=== PATIENT | male | born 1960 | race African-American/Black ===

== ENCOUNTER 2018-01-06 12:59 | Inpatient (IN) | payer OTHER ==
[~2018-01-06] VITALS: Ht 170.2 cm; Wt 102.0 kg
[2018-01-21] VITALS (11 sets, daily range): BP systolic 93–150; BP diastolic 52–87; PULSE 80–106; TEMP 98–98.6
[2018-01-21] MEDS ORDERED: MICARDIS80 MG PO (05:53)
[2018-01-21] MEDS ORDERED: ZYLOPRIM 300MG300 MG PO (05:54)
[2018-01-21] MEDS ORDERED: NORVASC 5MG5 MG/TAB PO (05:54)
[2018-01-21] MEDS ORDERED: JANUVIA 100MG100 MG PO (05:55)
[2018-01-21] MEDS ORDERED: PRAVACHOL80 MG PO (05:55)
[2018-01-21] MEDS ORDERED: GLUCOTROL10 MG PO (05:55)
[2018-01-21] MEDS ORDERED: VITAMIN C500 MG PO (05:56)
[2018-01-21] MEDS ORDERED: AMBIEN 10MG10 MG PO (05:56)
[2018-01-21 13:30] LABS: BASO % 0.2 % (0.0-2.0); EOS % 0.1 % (0-4.0); GRAN # 10.2 (1.4-6.5); GRAN % 88.8 % (42.2-75.2); LYMPH # 0.8 (1.2-3.4); LYMPH % 6.9 % (20.0-51.0); MEAN CELL VOLUME 84 fl (80.0-100.0); MEAN CORPUSCULAR HGB CONC 36 g/dl (33.0-37.0); MEAN PLATELET VOLUME 9.1 fl (7.4-10.4); MONO # 0.4 (0.1-0.6); MONO % 3.5 % (1.7-9.3); PLATELET COUNT 214 K/mm3 (130-400); RED BLOOD COUNT 3.93 M/mm3 (4.20-5.60); REDCELL DISTRIBUTION WIDTH-CV 13.2 % (11.5-14.5)
[2018-01-21 13:39] LABS: HEMATOCRIT 32.8 % (42.0-52.0); HEMOGLOBIN 11.7 g/dl (13.5-18.0); MEAN CORPUSCULAR HEMOGLOBIN 30 pg (27.0-31.0)
[2018-01-21 14:13] LABS: CALCIUM 8.4 mg/dL (8.4-10.2); CREATININE, serum 1.68 mg/dL (0.66-1.25)
[2018-01-21 14:15] LABS: POTASSIUM 5.1 mmol/L (3.4-5.0)
[2018-01-22 02:50] VITALS: BP 127/70; PULSE 111; TEMP 98.6
[2018-01-22 06:11] VITALS: BP 109/64; PULSE 107; TEMP 98.4
[2018-01-22 06:37] LABS: BASO % 0.2 % (0.0-2.0); GRAN % 85.6 % (42.2-75.2); LYMPH # 0.7 (1.2-3.4); LYMPH % 6.1 % (20.0-51.0); MEAN CELL VOLUME 83 fl (80.0-100.0); MEAN CORPUSCULAR HGB CONC 35 g/dl (33.0-37.0); MEAN PLATELET VOLUME 9.2 fl (7.4-10.4); MONO # 0.9 (0.1-0.6); MONO % 7.7 % (1.7-9.3); PLATELET COUNT 178 K/mm3 (130-400); RED BLOOD COUNT 3.54 M/mm3 (4.20-5.60); REDCELL DISTRIBUTION WIDTH-CV 13.5 % (11.5-14.5)
[2018-01-22 06:55] LABS: HEMATOCRIT 29.5 % (42.0-52.0); HEMOGLOBIN 10.3 g/dl (13.5-18.0); MEAN CORPUSCULAR HEMOGLOBIN 29 pg (27.0-31.0)
[2018-01-22 06:59] LABS: CALCIUM 8.1 mg/dL (8.4-10.2); CREATININE, serum 2.34 mg/dL (0.66-1.25); POTASSIUM 5.1 mmol/L (3.4-5.0)
[2018-01-22 09:38] VITALS: BP 120/71; PULSE 104; TEMP 98.1
[2018-01-22 13:05] VITALS: BP 109/68; PULSE 93; TEMP 98.9
[2018-01-22 17:24] VITALS: BP 130/73; PULSE 94; TEMP 98.8
[2018-01-22 22:30] VITALS: BP 151/89; PULSE 102; TEMP 97.2
[2018-01-23 00:14] VITALS: BP 153/85; PULSE 102; TEMP 97.4
[2018-01-23 05:00] VITALS: BP 137/80; PULSE 105; TEMP 98.3
[2018-01-23 06:55] LABS: CREATININE, serum 2.32 mg/dL (0.66-1.25); POTASSIUM 4.4 mmol/L (3.4-5.0)
[2018-01-23 07:01] LABS: BASO % 0.1 % (0.0-2.0); GRAN # 11.5 (1.4-6.5); GRAN % 85.4 % (42.2-75.2); HEMATOCRIT 32.6 % (42.0-52.0); HEMOGLOBIN 11.6 g/dl (13.5-18.0); LYMPH # 0.9 (1.2-3.4); LYMPH % 6.3 % (20.0-51.0); MEAN CELL VOLUME 83 fl (80.0-100.0); MEAN CORPUSCULAR HEMOGLOBIN 29 pg (27.0-31.0); MEAN CORPUSCULAR HGB CONC 36 g/dl (33.0-37.0); MEAN PLATELET VOLUME 9.8 fl (7.4-10.4); MONO % 7.5 % (1.7-9.3); PLATELET COUNT 162 K/mm3 (130-400); RED BLOOD COUNT 3.95 M/mm3 (4.20-5.60); REDCELL DISTRIBUTION WIDTH-CV 13.8 % (11.5-14.5)
[2018-01-23 09:18] VITALS: BP 126/83; PULSE 110; TEMP 98.8
[2018-01-23 12:33] VITALS: BP 145/84; PULSE 106; TEMP 98.7
[2018-01-23 18:00] VITALS: BP 156/88; PULSE 104; TEMP 98.4
[2018-01-23 21:25] VITALS: BP 164/84; PULSE 101; TEMP 99.4
[2018-01-24 04:14] VITALS: BP 179/96; PULSE 112; TEMP 98.3
[2018-01-24 06:18] VITALS: BP 166/92
[2018-01-24 07:10] LABS: BASO % 0.1 % (0.0-2.0); EOS # 0.1 (0.0-0.7); EOS % 0.6 % (0-4.0); GRAN # 8.9 (1.4-6.5); GRAN % 80.5 % (42.2-75.2); LYMPH # 1.1 (1.2-3.4); LYMPH % 9.9 % (20.0-51.0); MEAN CELL VOLUME 83 fl (80.0-100.0); MEAN CORPUSCULAR HGB CONC 35 g/dl (33.0-37.0); MEAN PLATELET VOLUME 10.1 fl (7.4-10.4); MONO # 0.9 (0.1-0.6); MONO % 8.4 % (1.7-9.3); PLATELET COUNT 149 K/mm3 (130-400); REDCELL DISTRIBUTION WIDTH-CV 13.4 % (11.5-14.5)
[2018-01-24 07:15] LABS: HEMATOCRIT 28.3 % (42.0-52.0); HEMOGLOBIN 9.9 g/dl (13.5-18.0); MEAN CORPUSCULAR HEMOGLOBIN 29 pg (27.0-31.0)
[2018-01-24 07:29] LABS: CALCIUM 8.6 mg/dL (8.4-10.2); CREATININE, serum 2.08 mg/dL (0.66-1.25)
[2018-01-24 10:13] VITALS: BP 146/85; PULSE 96; TEMP 97.9
[2018-01-24 12:58] VITALS: BP 157/87; PULSE 99; TEMP 100.4
[2018-01-24 18:08] VITALS: BP 140/83; PULSE 94; TEMP 99.4
[2018-01-24 22:00] VITALS: BP 138/83; PULSE 92; TEMP 99.1
[2018-01-25 02:00] VITALS: BP 155/89; PULSE 96; TEMP 98.3
[2018-01-25 06:53] VITALS: BP 150/88; PULSE 97; TEMP 98.9
[2018-01-25 07:21] LABS: BASO % 0.1 % (0.0-2.0); EOS # 0.2 (0.0-0.7); GRAN # 7.9 (1.4-6.5); LYMPH # 1.2 (1.2-3.4); LYMPH % 11.5 % (20.0-51.0); MEAN CELL VOLUME 82 fl (80.0-100.0); MEAN CORPUSCULAR HGB CONC 36 g/dl (33.0-37.0); MEAN PLATELET VOLUME 9.8 fl (7.4-10.4); MONO # 0.9 (0.1-0.6); MONO % 8.8 % (1.7-9.3); PLATELET COUNT 193 K/mm3 (130-400); RED BLOOD COUNT 3.58 M/mm3 (4.20-5.60); REDCELL DISTRIBUTION WIDTH-CV 13.6 % (11.5-14.5)
[2018-01-25 07:29] LABS: HEMATOCRIT 29.3 % (42.0-52.0); HEMOGLOBIN 10.5 g/dl (13.5-18.0); MEAN CORPUSCULAR HEMOGLOBIN 29 pg (27.0-31.0)
[2018-01-25 07:31] LABS: CALCIUM 8.8 mg/dL (8.4-10.2); CREATININE, serum 1.93 mg/dL (0.66-1.25); POTASSIUM 4.1 mmol/L (3.4-5.0)
[2018-01-25 11:09] VITALS: BP 136/74; PULSE 86; TEMP 98.5
[2018-01-25 14:36] VITALS: BP 133/74; PULSE 82; TEMP 98.4
== END 2018-01-25 16:40 | disposition home or self-care (01) | DRG 657 ==
LOC: INPTSU 01-21 05:26 → SURG 01-21 05:26
PROVIDERS: Physician Assistant; Urology
PROC: 8E0W4CZ Robotic Assisted Procedure of Trunk Region, Percutaneous Endoscopic Approach (ICD-10-PCS; 2018-01-21)
PROC: 0TB04ZZ Excision of Right Kidney, Percutaneous Endoscopic Approach (ICD-10-PCS; principal; 2018-01-21 07:30)
DX: C64.1 Malignant neoplasm of right kidney, except renal pelvis (principal); N17.9 Acute kidney failure, unspecified; K56.7 Ileus, unspecified; I10 Essential (primary) hypertension; E11.65 Type 2 diabetes mellitus with hyperglycemia; E87.5 Hyperkalemia
CPT/HCPCS: 99221; A4314; A9284; C1713; G0378; J0690; J1100; J1815; J1885; J1940; J2250; J2270; J2405; J2704; J2710; J2765; J3010; J7030; J7120